=== PATIENT | male | born 1985 | race Caucasian/White ===

== ENCOUNTER 2017-04-17 11:31 | Emergency (ER) | payer OTHER ==
[~2017-04-17] VITALS: Ht 167.6 cm; Wt 93.0 kg
--- NOTE | 2017-04-17 13:25 | ED NECK/BACK PAIN COMPLAINT ---
History of Present Illness General Chief Complaint: Low Back Pain/Injury Stated Complaint: LOWER BACK PAIN Source: patient Exam Limitations: no limitations Vital Signs & Intake/Output Vital Signs & Intake/Output Vital Signs Date Time Temp Pulse Resp B/P B/P Pulse O2 O2 Flow FiO2 Mean Ox Delivery Rate 04/17 1353 97.6 94 18 124/86 99 04/17 1335 96 Room Air 04/17 1147 97.6 87 20 138/88 96 Room Air Allergies Coded Allergies: No Known Allergies (04/17/17) Reconcile Medications Ibuprofen 800 MG TABLET 1 TAB PO TID PAIN Oxycodone HCl/Acetaminophen (Percocet 5-325 MG Tablet) 5 MG-325 MG TABLET 1-2 TAB PO Q8P PRN PAIN Triage Note: PT TO ED C/O LEFT LOW BACK PAIN SINCE YESTERDAY. STATES HE WAS DIAGNOSED WITH BRONCHITIS ON SUNDAY AND YESTERDAY WHILE COUGHING HE THINKS HE PULLED SOMETHING IN HIS BACK. Triage Nurses Notes Reviewed? yes Onset: Abrupt Duration: day(s):, constant Timing: recent history Quality/Severity: moderate, severe Method of Injury: unknown HPI: 31-year-old male comes into emergency room with complaints of left flank pain that wraps around. Patient reports that he was sick the past week with bronchitis. He was diagnosed with bronchitis. He reports that the other day he was coughing very hard and felt a sudden onset pain in the left side of his back. Since then it hurts with any movement deep breath. He has severe pain when he coughs. He comes in for further evaluation. (Sukhi Peña) Past History Travel History Traveled to [place] past 21 day No Medical History Any Pertinent Medical History? see below for history Respiratory: bronchitis Surgical History Surgical History: non-contributory Psychosocial History What is your primary language Welsh Tobacco Use: Never used ETOH Use: denies use Illicit Drug Use: denies illicit drug use Family History Hx Contributory? No (Sukhi Peña) Review of Systems Review of Systems Constitutional: Reports: no symptoms. Eyes: Reports: no symptoms. Ears, Nose, Throat, Mouth: Reports: no symptoms. Respiratory: Reports: no symptoms. Cardiovascular: Reports: no symptoms. Gastrointestinal/Abdominal: Reports: no symptoms. Musculoskeletal: Reports: see HPI. Skin: Reports: no symptoms. Neurological/Psychological: Reports: no symptoms. All Other Systems: Reviewed and Negative (Sukhi Peña) Physical Exam Physical Exam General Appearance: well developed/nourished, mild distress Head: atraumatic Eyes: Bilateral: normal appearance. Ears, Nose, Throat, Mouth: hearing grossly normal, moist mucous membrane Neck: normal inspection Respiratory: normal breath sounds, no respiratory distress, tenderness over the left mid axillary region, point tender Cardiovascular: regular rate/rhythm Gastrointestinal: soft, non-tender Back: normal inspection Extremities: normal range of motion Neurologic/Psych: awake, alert, oriented x 3, normal mood/affect Skin: intact, normal color, warm/dry Core Measures CVA/TIA Diagnosis: No (Sukhi Peña) Progress Differential Diagnosis: rib fracture, pneumonia, intercostal muscle tear, pneumothorax, Plan of Care: Orders Procedure Date/time Status XRY-RIBS UNILATERAL-LEFT 04/17 1324 Active Diagnostic Imaging: Viewed by Me: Radiology Read. Discussed w/RAD: Radiology Read. Radiology Impression: PATIENT: JORGITO MONTES DE OCA PRESENT AGE: 31 PATIENT ACCOUNT NO: [id number] : 83 LOCATION: [facility] ORDERING PHYSICIAN: Sukhi BROWNING SERVICE DATE: 04/17/17-1324 EXAM TYPE: RAD - XRY-RIBS UNILATERAL-LEFT EXAMINATION: XR RIBS, LEFT CLINICAL INFORMATION: Left rib pain after coughing. COMPARISON: Chest x-ray September 2015. TECHNIQUE: 2 views of the left ribs were obtained. FINDINGS: Lungs are clear. No consolidation, pneumothorax, or pleural effusion. The cardiomediastinal silhouette and pulmonary vasculature are normal. Surgical clips in the right upper quadrant. Osseous structures are unremarkable. Ribs are intact. No fractures are identified. IMPRESSION: Left ribs normal. Chest clear. DICTATED BY: Shemar Judge MD DATE/TIME DICTATED:04/17/171404 CHIP PERSON:BASIM DATE/ TIME TRANSCRIBED:04/17/171404 CONFIDENTIAL, DO NOT COPY WITHOUT APPROPRIATE AUTHORIZATION. <Electronically signed in Other Vendor System> SIGNED BY: Shemar Judge MD 04/17/17 1411 (Sukhi Peña) Departure Departure Disposition: HOME OR SELF CARE Condition: Stable Clinical Impression Primary Impression: Intercostal muscle strain Referrals: Unknown (PCP/Family) Additional Instructions: Take Percocet and ibuprofen as prescribed. Use incentive spirometer. Return if any other concerns worsening symptoms. Please go over all results of today's visit with your primary care doctor. Contact your primary care doctor to let them know you were here in the emergency room. There may be nonspecific findings which may not be related to your visit today here in the emergency room but may require further evaluation and chronic monitoring by your primary care doctor. If you had a laceration today the chance of foreign body always remains. You should follow-up with your primary care doctor for recheck in 3-5 days for a wound check. If you had an x-ray done there is a chance that a fracture could have been missed on initial read and you should follow-up with your primary care doctor for repeat x-rays if symptoms persist. If your blood pressure was elevated here in the emergency room please have rechecked by the hospital at [facility] primary care doctor within the next 48. If you were prescribed a narcotic here in the emergency room or any type of controlled substances you're not allowed to drive while taking this medication or operate any type of heavy machinery. Narcotics can make you feel lightheaded dizziness nausea and can cause constipation. You may need to hot die picker a stool softener. Thank you for choosing [facility] emergency room. Please return to the emergency room immediately if you have any other concerns worsening of symptoms. Departure Forms: Customer Survey General Discharge Information Prescriptions: Current Visit Scripts Oxycodone HCl/Acetaminophen (Percocet 5-325 MG Tablet) 1-2 TAB PO Q8P PRN PAIN #15 TAB Ibuprofen 1 TAB PO TID #30 TAB Comments 04/17/2017 2:24:55 PM Patient is point tender and reproducible. Consistent with musculoskeletal pain. No acute findings on x-ray. Follow-up with PCP. Patient has been resting comfortably in no distress on chair in the hallway. (Sukhi Peña) PA/PUBLIC HEALTH OUTREACH WORKER Co-Sign Statement Statement: ED Attending supervision documentation- I saw and evaluated the patient. I have also reviewed all the pertinent lab results and diagnostic results. I agree with the findings and the plan of care as documented in the PA's/PUBLIC HEALTH OUTREACH WORKER's documentation. x I have reviewed the ED Record and agree with the PA's/PUBLIC HEALTH OUTREACH WORKER's documentation. [] Additions or exceptions (if any) to the PAs/PUBLIC HEALTH OUTREACH WORKER's note and plan are summarized below: [] (Diana CONLEY,[place])
[2017-04-17 13:53] VITALS: BP 124/86
--- NOTE | 2017-04-17 14:11 | RADIOLOGY REPORT ---
EXAMINATION: XR RIBS, LEFT CLINICAL INFORMATION: Left rib pain after coughing. COMPARISON: Chest x-ray September 2015. TECHNIQUE: 2 views of the left ribs were obtained. FINDINGS: Lungs are clear. No consolidation, pneumothorax, or pleural effusion. The cardiomediastinal silhouette and pulmonary vasculature are normal. Surgical clips in the right upper quadrant. Osseous structures are unremarkable. Ribs are intact. No fractures are identified. IMPRESSION: Left ribs normal. Chest clear.
[2017-04-17] MEDS ORDERED: PERCOCET 5-3251 EACH PO ×2 (14:14→15:42)
[2017-04-17] MEDS ORDERED: IBUPROFEN800 M1 PO ×2 (14:14→15:42)
== END 2017-04-17 14:35 ==
LOC: ERH 11:31
DX: S29.012A Strain of muscle and tendon of back wall of thorax, initial encounter (principal); X50.9XXA Other and unspecified overexertion or strenuous movements or postures, initial encounter; Y93.89 Activity, other specified; Y92.9 Unspecified place or not applicable
CPT/HCPCS: 71100-LT; 96372; J1885